=== PATIENT | male | born 1985 | race African-American/Black ===

== ENCOUNTER 2019-08-30 15:23 | Emergency (ER) | payer OTHER ==
[2019-08-30 15:42] VITALS: BP 136/77; PULSE 74; TEMP 98.1; BMI 29.4
--- NOTE | 2019-08-30 15:43 | PDOC ---
Documentation entered by Sonia Mckenzie SCRIBE, acting as scribe for Carlos Lewis MD. Carlos Lewis MD: This documentation has been prepared by the saeedibJonah cartagena Ana, SCRIBE, under my direction and personally reviewed by me in its entirety. I confirm that the documentation accurately reflects all work, treatment, procedures, and medical decision making performed by me. History of Present Illness - General Chief Complaint: Injury Stated Complaint: LEFT 1ST TOENAIL INJURY Time Seen by Provider: 08/30/19 15:27 History Source: Patient Exam Limitations: No Limitations - History of Present Illness Initial Comments: 08/30/19 15:31 Patient is a 34 year old male with no significant past medical history who presents to the ED with an injury to the left big toe x1 day. Patient stated he was playing basketball yesterday when someone "landed on his toe". Patient said he later noticed he was "bleeding through his sock" and woke up this morning with "clear fluid coming out of the toe". Patient denies any other related symptoms. Allergies: NKDA Past History - Medical History Allergies/Adverse Reactions: Allergies Allergy/AdvReac Type Severity Reaction Status Date / Time No Known Allergies Allergy Verified 08/30/19 15:24 Home Medications: Ambulatory Orders NK [No Known Home Medication] 08/30/19 Review of Systems - Review of Systems Able to Perform ROS?: Yes Comments:: 08/30/19 15:34 GENERAL/CONSTITUTIONAL: No fever or chills. No weakness. HEAD, EYES, EARS, NOSE AND THROAT: No change in vision. No ear pain or discharge. No sore throat. CARDIOVASCULAR: No chest pain, no shortness of breath, no loss of consciousness RESPIRATORY: No cough, wheezing, or hemoptysis. GASTROINTESTINAL: No nausea, vomiting, diarrhea or constipation. GENITOURINARY: No dysuria, frequency, or change in urination. MUSCULOSKELETAL: +Injury to left big toe, bleeding, clear fluid coming out. No neck or back pain. SKIN: No rash NEUROLOGIC: No vertigo, no change in strength/sensation. ENDOCRINE: No increased thirst. No abnormal weight change. HEMATOLOGIC/LYMPHATIC: No anemia, easy bleeding, or history of blood clots. ALLERGIC/IMMUNOLOGIC: No hives or skin allergy." *Physical Exam - Physical Exam 08/30/19 15:35 GENERAL: Awake, alert, and fully oriented, in no acute distress. HEAD: No signs of trauma EYES: PERRLA, EOMI, sclera anicteric, conjunctiva clear ENT: Auricles normal inspection, hearing grossly normal, nares patent, oropharynx clear without exudates. Moist mucosa NECK: Nontender, no stepoffs, Normal ROM, supple, no lymphadenopathy, JVD, or masses LUNGS: Breath sounds equal, clear to auscultation bilaterally. No wheezes, and no crackles HEART: Regular rate and rhythm, normal S1 and S2, no murmurs, rubs or gallops ABDOMEN: Soft, nontender, normoactive bowel sounds. No guarding, no rebound. No masses EXTREMITIES: + L 1st toe with abrasion to tip of toe extending to toenail with partial toenail avulsion, no laceration, + serosanguinous drainage, Normal range of motion, no edema. No clubbing or cyanosis. No cords, erythema, or tenderness NEUROLOGICAL: Cranial nerves II through XII intact. 5/5 strength and sensation in all extremities, Normal speech, normal gait, normal cerebellar function SKIN: Warm, Dry, normal turgor, no rashes or lesions noted. Medical Decision Making - Medical Decision Making 08/30/19 15:45 34 M with abrasion to L 1st toe with partial toenail avulsion. - Abx ppx - Podiatry referral Pt is well appearing, with normal vitals. Clinically stable for DC at this time. I discussed the physical exam findings, ancillary test results and final diagnoses with the patient. I answered all of the patient's questions. The patient was satisfied with the care received and felt comfortable with the discharge plan and treatment plan. The patient agrees to follow up with the primary care physician within 24-72 hours. Please note this patient was evaluated during the COVID-19 crisis with the presidential V[place] Act Declaration and the [place] governor executive order number 202. He/she was evaluated and clinical decisions were made relative to healthcare system resources as well as clinical picture during a pandemic crisis situation. Discharge - Discharge Information Problems reviewed: Yes Clinical Impression/Diagnosis: Injury of toenail of left foot Disposition: HOME - Follow up/Referral Referrals: Eddi Ng MD [Staff Physician] - - Patient Discharge Instructions Patient Printed Discharge Instructions: DI for Toe Sprain Additional Instructions: Take the antibiotics as prescribed to prevent infection of your toe. Follow up with a bonding supervisor within 1-2 weeks for further evaluation. Call the number provided to make an appointment. If you experience any swelling, redness, abnormal drainage, or any other concerning symptoms, return to the ER immediately. - Post Discharge Activity
[2019-08-30] MEDS ORDERED: CEPHALEXIN MONOHYDRATE 500 MG CAPSULE (UD) PO ONE (15:47)
[2019-08-30] MEDS ORDERED: CEPHALEXIN MONOHYDRATE 500 MG CAPSULE (UD) ONE (15:55)
== END 2019-08-30 15:59 | disposition home or self-care (01) ==
LOC: FER 15:23
DX: S91.202A Unspecified open wound of left great toe with damage to nail, initial encounter (principal)
CPT/HCPCS: 99283-25

== ENCOUNTER 2019-12-26 21:15 | Emergency (ER) | payer OTHER ==
[2019-12-26 21:21] VITALS: BP 123/75; PULSE 72; TEMP 98; BMI 29.9
[2019-12-26] MEDS ORDERED: LIDOCAINE 5% TOPICAL PATCH TP ONE (21:31)
[2019-12-26] MEDS ORDERED: KETOROLAC TROMETHAMINE 30 MG/1 ML VIAL IM ONE (21:31)
[2019-12-26] MEDS ORDERED: KETOROLAC TROMETHAMINE 30 MG/1 ML VIAL ONE (21:33)
[2019-12-26] MEDS ORDERED: LIDOCAINE PATCH REMOVAL MC SCH (22:00)
== END 2019-12-26 22:03 | disposition home or self-care (01) ==
LOC: FER 21:15
PROC: 3E0233Z Introduction of Anti-inflammatory into Muscle, Percutaneous Approach (ICD-10-PCS; principal; 2019-12-26)
DX: M54.41 Lumbago with sciatica, right side (principal); M54.30 Sciatica, unspecified side
CPT/HCPCS: 99284-25

== ENCOUNTER 2020-05-05 18:04 | Emergency (ER) | payer OTHER ==
[2020-05-05 18:19] VITALS: BP 125/76; PULSE 72; TEMP 97.9; BMI 30.3
[2020-05-05] MEDS ORDERED: IBUPROFEN 600 MG TABLET (FP) PO ONE ×2 (18:31→18:32)
== END 2020-05-05 18:46 | disposition home or self-care (01) ==
LOC: FER 18:04
DX: B35.1 Tinea unguium (principal)
CPT/HCPCS: 99283-25

== ENCOUNTER 2020-06-10 13:59 | Emergency (ER) | payer OTHER ==
[2020-06-10 14:25] VITALS: BP 114/80; PULSE 70; TEMP 98.9; BMI 28.4
[2020-06-10] MEDS ORDERED: MECLIZINE HCL 25 MG TABLET (FP) PO ONE ×2 (14:31→15:14)
[2020-06-10] MEDS ORDERED: MECLIZINE HCL 25 MG TABLET (FP) ONE ×2 (14:41→15:17)
== END 2020-06-10 15:24 | disposition home or self-care (01) ==
LOC: FER 13:59
DX: R42 Dizziness and giddiness (principal)
CPT/HCPCS: 99284-25; C9803; U0003; U0005

== ENCOUNTER 2020-11-05 11:31 | Emergency (ER) | payer OTHER ==
[2020-11-05 11:38] VITALS: BMI 24.9
[2020-11-05 11:57] VITALS: BP 133/82; PULSE 67; TEMP 98.1
[2020-11-05] MEDS ORDERED: IBUPROFEN 400 MG TABLET (FP) PO ONE ×2 (12:20→12:40)
== END 2020-11-05 13:50 | disposition home or self-care (01) ==
LOC: FER 11:31
DX: M25.562 Pain in left knee (principal)
CPT/HCPCS: 73564-TC-LT-FY; 99284-25

== ENCOUNTER 2022-01-13 12:12 | Emergency (ER) | payer OTHER ==
[2022-01-13 12:28] VITALS: BP 119/82; PULSE 70; RESP 16; TEMP 98.5; BMI 30.4
[2022-01-13] MEDS ORDERED: IBUPROFEN 600 MG TABLET (FP) PO ONE ×2 (13:29→13:31)
== END 2022-01-13 13:36 | disposition home or self-care (01) ==
LOC: FER 12:12
DX: M25.561 Pain in right knee (principal)
CPT/HCPCS: 99283-25

== ENCOUNTER 2023-05-12 16:47 | Emergency (ER) | payer OTHER ==
[2023-05-12 17:17] VITALS: BP 124/81; PULSE 79; RESP 18; TEMP 98; BMI 29.6
[2023-05-12] MEDS ORDERED: LIDOCAINE 5% TOPICAL PATCH ONE (17:19)
[2023-05-12] MEDS ORDERED: KETOROLAC TROMETHAMINE 15 MG/ML VIAL ONE ×2 (17:19→17:32)
[2023-05-12] MEDS: LIDOCAINE 5% TOPICAL PATCH TP ONE (17:31)
[2023-05-12] MEDS: KETOROLAC TROMETHAMINE 15 MG/ML VIAL IM ONE (17:33)
[2023-05-13] MEDS ORDERED: LIDOCAINE PATCH REMOVAL MC SCH (06:00)
== END 2023-05-12 18:29 | disposition home or self-care (01) ==
LOC: FER 16:47
PROC: 3E0233Z Introduction of Anti-inflammatory into Muscle, Percutaneous Approach (ICD-10-PCS; principal; 2023-05-12)
DX: M54.42 Lumbago with sciatica, left side (principal); X50.9XXA Other and unspecified overexertion or strenuous movements or postures, initial encounter; Y93.67 Activity, basketball
CPT/HCPCS: 99284-25

== ENCOUNTER 2023-07-31 17:59 | Emergency (ER) | payer OTHER ==
[2023-07-31 18:10] VITALS: BP 137/83; PULSE 78; RESP 18; TEMP 98; BMI 29.6
[2023-07-31] MEDS ORDERED: LIDOCAINE 5% TOPICAL PATCH ONE (18:50)
[2023-07-31] MEDS ORDERED: KETOROLAC TROMETHAMINE 30 MG/1 ML VIAL ONE (18:50)
[2023-07-31] MEDS ORDERED: ACETAMINOPHEN 325 MG TABLET (FP) ONE (18:50)
[2023-07-31] MEDS: LIDOCAINE 5% TOPICAL PATCH TP ONE (18:57)
[2023-07-31] MEDS: KETOROLAC TROMETHAMINE 30 MG/1 ML VIAL IM ONE (18:57)
[2023-07-31] MEDS: ACETAMINOPHEN 500 MG TABLET (FP) PO ONE (18:58)
[2023-08-01] MEDS ORDERED: LIDOCAINE PATCH REMOVAL MC SCH (07:00)
== END 2023-07-31 19:12 | disposition home or self-care (01) ==
LOC: FER 17:59
PROC: 3E0233Z Introduction of Anti-inflammatory into Muscle, Percutaneous Approach (ICD-10-PCS; principal; 2023-07-31)
DX: M54.50 Low back pain, unspecified (principal)
CPT/HCPCS: 99284-25

== ENCOUNTER 2023-10-10 20:35 | Observation (INO) | payer OTHER ==
[2023-10-10] MEDS ORDERED: LIDOCAINE 5% TOPICAL PATCH ONE (21:23)
[2023-10-10] MEDS ORDERED: diazePAM 5 MG TABLET ONE (21:23)
[2023-10-10] MEDS ORDERED: DEXAMETHASONE 4 MG TABLET (FP) ONE (21:23)
[2023-10-10] MEDS ORDERED: KETOROLAC TROMETHAMINE 60 MG/2 ML VIAL ONE (21:24)
[2023-10-10] MEDS: DEXAMETHASONE 4 MG TABLET (FP) PO ONE (21:35)
[2023-10-10] MEDS: KETOROLAC TROMETHAMINE 60 MG/2 ML VIAL IM ONE (21:35)
[2023-10-10] MEDS: LIDOCAINE 5% TOPICAL PATCH TP ONE (21:36)
[2023-10-10] MEDS: diazePAM 5 MG TABLET PO ONE (21:36)
[2023-10-11 00:24] LABS: BASO % 0.5 % (0-2.0); EOS % 2.2 % (0-4.5); HEMOGLOBIN 14.6 GM/dL (11.7-16.9); LYMPH % 21.4 % (8-40); MCH 28.7 pg (25.7-33.7); MCHC 33.1 g/dl (32.0-35.9); MEAN CELL VOLUME 86.9 fl (80-96); MEAN PLT VOLUME 10.2 fl (7.5-11.1); MONO % 5.1 % (3.8-10.2); NEUT % 70.8 % (42.8-82.8); PLATELET COUNT 204 10^3/uL (134-434); RBC 5.07 M/mm3 (4.00-5.60); RDW 14.2 % (11.9-15.9); WHITE BLOOD COUNT 6.3 K/mm3 (4.0-10.0)
[2023-10-11 00:46] LABS: POTASSIUM 3.8 mmol/L (3.5-5.1)
[2023-10-11 00:48] LABS: CALCIUM 9.1 mg/dL (8.5-10.1)
[2023-10-11 00:52] LABS: CREATININE 1.3 mg/dL (0.55-1.3)
[2023-10-11 00:53] LABS: BILIRUBIN,TOTAL 0.7 mg/dL (0.2-1); TOT PROT 7.4 g/dl (6.4-8.2)
[2023-10-11] MEDS: LIDOCAINE PATCH REMOVAL MC SCH (01:40)
[2023-10-11] MEDS ORDERED: ACETAMINOPHEN 325 MG TABLET (FP) PO PRN (02:38)
[2023-10-11 02:42] VITALS: BMI 28.6
[2023-10-11 06:06] VITALS: PULSE 65; TEMP 97.5
[2023-10-11] MEDS ORDERED: oxyCODONE HCL 5 MG TABLET PO PRN (07:41)
[2023-10-11 09:01] VITALS: BP 116/72; RESP 18
[2023-10-11] MEDS: ENOXAPARIN NA (PORCINE) 40 MG/0.4 ML DISP.SYRIN SQ SCH (09:39)
[2023-10-11] MEDS: ACETAMINOPHEN 500 MG TABLET (FP) PO SCH (09:40)
[2023-10-11] MEDS: methylPREDNISolone 4 MG TABLET PO ONE (09:41)
[2023-10-11] MEDS: NAPROXEN 500 MG TABLET PO SCH (09:43)
[2023-10-11] MEDS: LIDOCAINE PATCH REMOVAL MC ONE (09:47)
[2023-10-11] MEDS: LIDOCAINE 5% TOPICAL PATCH TP SCH (09:47)
[2023-10-11] MEDS ORDERED: LIDOCAINE PATCH REMOVAL MC SCH (22:00)
== END 2023-10-11 13:45 | disposition home or self-care (01) ==
LOC: FER 20:35 → FM/S 23:43 → UNDOADMOB 10-11 00:54 → FM/S 10-11 00:54
PROVIDERS: ADMIT Internal Medicine; ATTEND Internal Medicine
PROC: 3E023GC Introduction of Other Therapeutic Substance into Muscle, Percutaneous Approach (ICD-10-PCS; principal; 2023-10-10)
PROC: 3E0233Z Introduction of Anti-inflammatory into Muscle, Percutaneous Approach (ICD-10-PCS; 2023-10-10)
DX: M54.32 Sciatica, left side (principal); M48.062 Spinal stenosis, lumbar region with neurogenic claudication; G89.29 Other chronic pain; F17.290 Nicotine dependence, other tobacco product, uncomplicated
CPT/HCPCS: 36415; 72131-TC; 80053; 85025; 97116-GP; 97162-GP; 99285-25; G0378

== ENCOUNTER 2023-11-09 23:21 | Emergency (ER) | payer OTHER ==
[2023-11-09 23:44] VITALS: BP 139/81; PULSE 70; RESP 17; TEMP 98.2; BMI 29.0
[2023-11-10] MEDS ORDERED: valACYclovir HCL 500 MG TABLET (FP) ONE (00:23)
[2023-11-10] MEDS: valACYclovir HCL 500 MG TABLET (FP) PO ONE (00:27)
== END 2023-11-10 00:27 | disposition home or self-care (01) ==
LOC: FER 23:21
DX: A60.01 Herpesviral infection of penis (principal)
CPT/HCPCS: 99283-25

== ENCOUNTER 2023-12-10 13:29 | Emergency (ER) | payer OTHER ==
[2023-12-10 13:54] VITALS: BP 122/81; PULSE 76; RESP 16; TEMP 98.2; BMI 29.0
== END 2023-12-10 14:35 | disposition home or self-care (01) ==
LOC: FER 13:29
DX: B00.9 Herpesviral infection, unspecified (principal); Z76.0 Encounter for issue of repeat prescription
CPT/HCPCS: 99283-25